=== PATIENT | male | born 1960 | race Asian ===

== ENCOUNTER 2021-05-30 22:28 | Emergency (ER) | payer OTHER, SELFPAY ==
[~2021-05-30] VITALS: Ht 172.7 cm; Wt 77.1 kg
[2021-05-30 22:45] VITALS: BP_SYST 153
[2021-05-30] MEDS ORDERED: KETOROLAC TROMETHAMINE 30 MG VIAL IVP ONE (23:15)
[2021-05-30] MEDS ORDERED: NACL 0.9% 1,000 ML IV ONE (23:15)
[2021-05-30 23:53] LABS: HEMOGLOBIN 12.5 g/dL (14.0-18.0); MEAN CORPUSCULAR HEMOGLOBIN 29 pg (27-31); MEAN CORPUSCULAR HGB CONC 33 % (32-36); MEAN CORPUSCULAR VOLUME 87 fL (79.0-98.0); PLATELET COUNT (AUTO) 479 K/uL (130-430); RED BLOOD CELL COUNT(AUTO) 4.37 MIL/uL (4.2-6.2); WHITE BLOOD COUNT (AUTO) 11.3 K/uL (4.8-10.8)
[2021-05-30 23:54] LABS: BILIRUBIN,URINE NEGATIVE (NEGATIVE); BLOOD, URINE 2+ (NEGATIVE); CLARITY/URINE CLEAR (CLEAR); COLOR,URINE YELLOW (YELLOW); GLUCOSE,URINE NEGATIVE (NEGATIVE); KETONES,URINE NEGATIVE (NEGATIVE); LEUKOCYTE ESTERASE ,URINE NEGATIVE (NEGATIVE); NITRITE, URINE NEGATIVE (NEGATIVE); PROTEIN URINE NEGATIVE (NEGATIVE); UROBILINOGEN,URINE 0.2 (0.2-1.0)
[2021-05-31 00:01] LABS: CALCIUM 8.5 mg/dL (8.4-11.0); CREATININE 1.18 mg/dL (0.55-1.30)
[2021-05-31 00:07] LABS: ALBUMIN 3.6 g/dL (3.4-4.8); TOTAL BILIRUBIN 0.4 mg/dL (0.0-1.0)
[2021-05-31 00:43] LABS: BASOPHILS % (MANUAL) 0 % (0-2); EOSINOPHILS % (MANUAL) 0 % (0-7); LYMPHOCYTES % (MANUAL) 19 % (20-46); MONOCYTES % (MANUAL) 8 % (0-11)
[2021-05-31 01:08] LABS: BACTERIA,URINE None Seen /HPF (None Seen); WBC,URINE 0-3 /HPF (0-3)
[2021-05-31] MEDS ORDERED: LOSA100T3 PO (01:49)
[2021-05-31] MEDS ORDERED: atrovastatin (01:49)
[2021-05-31] MEDS ORDERED: MORPHINE 4 MG INJ. 4 MG/ML VIAL IVP ONE (02:00)
[2021-05-31] MEDS ORDERED: NACL 0.9% 1,000 ML IV ONE (02:00)
[2021-05-31] MEDS ORDERED: ONDANSETRON HCL 4 MG/2 ML VIAL IVP ONE (02:00)
[2021-05-31] MEDS ORDERED: NAPR-1172 PO (02:53)
[2021-05-31 03:04] VITALS: BP_SYST 140
== END 2021-05-31 03:01 | disposition home or self-care (01) ==
LOC: SED 22:28
DX: N23 Unspecified renal colic (principal); Z79.899 Other long term (current) drug therapy; Z20.822 Contact with and (suspected) exposure to COVID-19
CPT/HCPCS: 36415; 74176; 76376; 80053; 81000; 85007; 85027; 87426; 96361 ×2; 96374; 96375; 99284; J1885; J2270; J2405; J7030 ×2; 85025